=== PATIENT | male | born 1955 | race Caucasian/White ===

== ENCOUNTER 2019-08-09 10:22 | Emergency (ER) | payer MEDICARE, OTHER, SELFPAY ==
[2019-08-09 10:42] VITALS: BP 144/77; PULSE 101; RESP 18; TEMP 36.6; O2SAT 99
--- NOTE | 2019-08-09 11:04 | ED.URI ---
HPI - URI/Sore Throat General Chief Complaint: Upper Respiratory Infection Stated Complaint: cough and sore throat Time Seen by Provider: 08/09/19 11:04 Source: patient and family History of Present Illness HPI Narrative: Patient presents with dry hacking nonproductive cough for the past 2 weeks. Patient denies any shortness of breath no chest pain. Patient denies any asthma and is a non-smoker. Patient states his cough is worse when he gets up in the morning. Patient states he is tried Valerie-Sweet Briar plus DayQuil and NyQuil with minimal results in his cough. Patient denies any fever denies any nasal congestion and no ear pain. Patient denies any sore throat. MD elicited complaint: cough and nasal congestion Related Data Home Medications Medication Instructions Recorded Confirmed aspirin [Aspir-Low] 08/09/19 rosuvastatin [Crestor] 10 mg PO DAILY 08/09/19 08/09/19 tamsulosin [Flomax] 0.4 mg PO DAILY 08/09/19 08/09/19 Allergies Allergy/AdvReac Type Severity Reaction Status Date / Time No Known Allergies Allergy Unverified 06/17/16 18:22 Review of Systems Review of Systems: Narrative: CONSTITUTIONAL: Denies fever, chills, or sweats. EYES: Denies visual changes, redness, or discharge. ENT: Reports nasal congestion and drainage denies sore throat denies ear pain CARDIOVASCULAR: Denies chest pain, palpitations, or edema. RESPIRATORY: Denies dyspnea. Reports dry hacking nonproductive cough GASTROINTESTINAL: Denies abdominal pain, nausea, vomiting, or diarrhea. GENITOURINARY: Denies dysuria or hematuria. SKIN: Denies rash or itching. MUSCULOSKELETAL: Denies back pain, joint pain, or myalgia. NEUROLOGIC: Denies headache, numbness, or weakness. PSYCHIATRIC: Denies anxiety or depression. PMFSH Comments At time of signature, agree with nursing past medical, surgical, social and family history. There is no relevant family history pertinent to the presenting complaint Exam Narrative: Exam Narrative: GENERAL APPEARANCE: The patient is a well-developed, well-nourished in no acute distress. SKIN: Skin is warm and dry without erythema, swelling or exudate. There is good turgor. No tenting. HEAD: Atraumatic. Normocephalic. No temporal or scalp tenderness. EYES: Moist and bright. Sclera and conjunctivae normal. No discharge. PERRLA. Extraocular motions intact. Gross visual acuity intact. EARS: Pinna is normal shape and contour. Clear external auditory canals. TM pearly kaur with good cone of light, no erythema or suppuration. Bilateral cerumen noted no gross hearing deficit. NOSE: pink, moist mucosa with good air movement. Clear rhinorrhea without nasal flaring. Septum midline. Mouth: moist mucous membranes. THROAT; mild erythema noted to posterior oropharynx with moderate postnasal drainage. Without exudate or ulceration.. Uvula midline. Normal movement of soft palate. NECK: Supple and nontender with full range of motion without discomfort. No meningeal signs. LUNGS: Equal and bilateral breath sounds without wheezes, rales or rhonchi. CHEST: The chest wall is without retractions or use of accessory muscles. HEART: Has a regular rate and rhythm without murmur, gallops, click or rub. ABDOMEN: Soft, nontender with positive active bowel sounds. No rebound tenderness. EXTREMITIES: Without cyanosis, clubbing or edema. Equal 2+ distal pulses and 2 second capillary refill noted. NEUROLOGIC: alert, active, developmentally normal for age. The patient moves all extremities with normal muscle strength. Normal muscle tone is noted. Normal coordination is noted. NO focal neurological findings noted. Course Vital Signs Vital signs: Vital Signs Temperature 36.6 C 08/09/19 10:42 Pulse Rate 101 H 08/09/19 10:42 Respiratory Rate 18 08/09/19 10:42 Blood Pressure 144/77 H 08/09/19 10:42 Pulse Oximetry 99 08/09/19 10:42 Temperature 36.6 C 08/09/19 10:42 Pulse Rate 101 H 08/09/19 10:42 Respiratory Rate 18 08/09/19 10:42 Blood
== END 2019-08-09 11:15 | disposition home or self-care (01) ==
PROVIDERS: Emergency Provider Nurse Practitioner Family
DX: R09.82 Postnasal drip (principal); J06.9 Acute upper respiratory infection, unspecified; E78.00 Pure hypercholesterolemia, unspecified
CPT/HCPCS: 99203; G0463

== ENCOUNTER 2019-11-11 08:34 | Emergency (ER) | payer MEDICARE, OTHER, SELFPAY ==
[2019-11-11 08:44] VITALS: BP 134/72; PULSE 100; RESP 18; TEMP 37.7; O2SAT 98
--- NOTE | 2019-11-11 08:55 | ED.GENADULT ---
HPI - General Adult General Chief complaint: Extremity Injury, Upper Stated complaint: left elbow pain/swollen Time Seen by Provider: 11/11/19 08:55 Source: patient and RN notes reviewed Mode of arrival: ambulatory Limitations: no limitations History of Present Illness HPI narrative: 64-year-old male presents with complains of LT elbow tenderness and swelling for 1 day. Tylenol with little relief. Increase swelling today. Denies injuries or repetitive usage of LT arm. No radiation of pain. Exacerbation factor consist of movement and palpation. The relieving factor is immobility. Dominant hand is the RIGHT HAND. No suspected abuse. Denies fever or chills. Denies diarrhea, abdominal pain, nausea, and vomiting. Tolerating po intake well. Denies headaches, weakness, fatigue, myalgia. Denies chest pain or dyspnea. Denies cough, rhinorrhea, congestion, and sore throat. Denies recent traveling. Denies concern for COVID-19 or exposures been home since [id number] order except for essential household needs and return home. Some parts of this dictation were generated by voice recognition software and may contain typographical and/or grammatical inaccuracies. Related Data Home Medications Medication Instructions Recorded Confirmed aspirin [Aspir-Low] 81 mg PO DAILY 08/09/19 11/11/19 rosuvastatin [Crestor] 10 mg PO DAILY 08/09/19 11/11/19 tamsulosin [Flomax] 0.4 mg PO DAILY 08/09/19 11/11/19 Allergies Allergy/AdvReac Type Severity Reaction Status Date / Time No Known Allergies Allergy Verified 11/11/19 08:46 Review of Systems Review of Systems: Narrative: CONSTITUTIONAL: Denies fever, chills, sweats. EYES: Denies visual changes, redness, discharge. ENT: Denies rhinorrhea, congestion, sore throat, otalgia. CARDIOVASCULAR: Denies chest pain, palpitations, edema. RESPIRATORY: Denies dyspnea, wheezing, cough. GASTROINTESTINAL: Denies abdominal pain, nausea, vomiting, diarrhea. GENITOURINARY: Denies dysuria, hematuria, abnormal discharge. SKIN: Denies rash or itching. MUSCULOSKELETAL: Denies acute back pain or myalgia. Complains of LT elbow pain and swelling. NEUROLOGIC: Denies numbness or focal weakness. PSYCHIATRIC: Denies anxiety or depression. All other systems reviewed & are unremarkable except as noted in HPI and below. PMFSH Past Medical History Medical History (Updated 11/11/19 @ 10:38 by CHRISTIANO Ren) ACL (anterior cruciate ligament) tear Appendicitis Hernia History of BPH Hypercholesteremia Surgical History Surgical History (Updated 11/11/19 @ 10:38 by CHRISTIANO Ren) H/O arthroscopy of left knee History of hernia surgery Left Inguinal hernia History of repair of ACL Left knee Hx of appendectomy Hx of repair of right rotator cuff Family History Family History (Updated 11/11/19 @ 09:11 by CHRISTIANO Ren) Father No problems noted. Mother No problems noted. Social History Social History (Updated 11/11/19 @ 09:12 by CHRISTIANO Ren) Smoking status: Never smoker Second hand tobacco smoke exposure: No Alcohol intake: current Substance use: never Living arrangements: with family Occupation/Education: retired Gender identity (if verbalized by the patient): Male Exam Narrative: Exam Narrative: GENERAL APPEARANCE: The patient is a well-developed, well-nourished child who is awake, active. Interacts appropriately with surroundings and examiner, in no acute distress. HEAD: Atraumatic. Normocephalic. No temporal or scalp tenderness. EYES: Moist and bright. Sclera and conjunctivae normal. No discharge. PERRLA. Extraocular motions intact. Gross visual acuity intact. NECK: Supple and nontender with full range of motion without discomfort. No meningeal signs. LUNGS: Equal and bilateral breath sounds without wheezes, rales or rhonchi. CHEST: The chest wall is without retractions or use of accessory muscles.
== END 2019-11-11 09:20 | disposition home or self-care (01) ==
PROVIDERS: Emergency Provider Nurse Practitioner Family
DX: M70.32 Other bursitis of elbow, left elbow (principal); N40.0 Benign prostatic hyperplasia without lower urinary tract symptoms; E78.00 Pure hypercholesterolemia, unspecified; R03.0 Elevated blood-pressure reading, without diagnosis of hypertension
CPT/HCPCS: 99212; G0463

== ENCOUNTER 2024-02-14 15:35 | Emergency (ER) | payer MEDICARE, SELFPAY ==
[2024-02-14 15:42] VITALS: BP 126/74; PULSE 95; RESP 16; TEMP 36.6; O2SAT 98
--- NOTE | 2024-02-14 15:46 | ED.SKABFB ---
HPI - Skin/Abscess/Foreign Bdy General Chief complaint: Skin/Abscess/Foreign Body Stated complaint: Wasp stings on arms Source: patient, RN notes reviewed and old records reviewed Mode of arrival: ambulatory Limitations: no limitations History of Present Illness HPI narrative: 68 year old male accompanied by who presents to express care with complaints of being stung on his right arm lower inner arm and also to left lower leg ankle region yesterday by 5-6 wasps/bees. Patient has redness and swelling to areas with some discomfort with stated concern for infection to right inner arm due to swelling and warmth of area. Patient reports that he has taken Benadryl for the itching and swelling denies any difficulty with his breathing or with his swallowing. MD complaint: rash and insect bite/sting Onset (ago): day(s) (day 2) Location: RUE and LLE Severity: moderate Treatments prior to arrival: Benadryl Related Data Home Medications Medication Instructions Recorded Confirmed diclofenac sodium 75 mg 75 mg PO BID 02/14/24 02/14/24 tablet,delayed release diphenhydramine HCl 25 mg capsule 25 mg PO HS PRN Allergy Symptoms 02/14/24 02/14/24 dutasteride 0.5 mg capsule 0.5 mg PO DAILY 02/14/24 02/14/24 hydroxychloroquine 200 mg tablet 200 mg PO DAILY 02/14/24 02/14/24 leflunomide 20 mg tablet 20 mg PO DAILY 02/14/24 02/14/24 metoprolol succinate 50 mg 50 mg PO DAILY 02/14/24 02/14/24 tablet,extended release 24 hr rosuvastatin 10 mg tablet 10 mg PO DAILY 02/14/24 02/14/24 tamsulosin 0.4 mg capsule 0.4 mg PO DAILY 02/14/24 02/14/24 Allergies Allergy/AdvReac Type Severity Reaction Status Date / Time No Known Allergies Allergy Verified 02/14/24 15:44 Review of Systems Review of Systems: CONSTITUTIONAL: Denies malaise, chills, sweats, or fever. EYES: Denies visual changes, redness, or discharge. ENT: Reports no rhinorrhea, congestion, sinus pain, otalgia and or sore throat. CARDIOVASCULAR: Denies chest pain, palpitations, or edema. RESPIRATORY: Reports no cough.? Denies dyspnea. GASTROINTESTINAL: Denies abdominal pain, nausea, vomiting, diarrhea SKIN: Reports red raised swollen tissue to his right inner arm and to his left ankle area with itching. MUSCULOSKELETAL: Denies myalgia. NEUROLOGIC: Denies headache. All systems reviewed & are unremarkable except as noted in HPI and below PMFSH Past Medical History Medical History (Updated 02/16/24 @ 11:07 by Devi Holly NP) ACL (anterior cruciate ligament) tear Appendicitis Arthritis Hernia History of BPH Hypercholesteremia Hypertension Surgical History Surgical History H/O arthroscopy of left knee History of hernia surgery Left Inguinal hernia History of repair of ACL Left knee Hx of appendectomy Hx of repair of right rotator cuff Family History Family History Father No problems noted. Mother No problems noted. Social History Social History Smoking status: Never smoker Second hand tobacco smoke exposure: No Alcohol intake: current Substance use: never Living arrangements: with family Occupation/Education: retired Gender identity (if verbalized by the patient): Male Comments At time of signature, agree with nursing past medical, surgical, social and family history. There is no relevant family history pertinent to the presenting complaint Exam Narrative: GENERAL: Well-appearing, well-nourished, and in no acute distress. HEAD: Normocephalic EYES: PERRLA, conjunctivae clear ENT: Nares clear, turbinates edematous and erythematous, clear discharge. Mucous membranes moist. TM pearly silva with dull light reflex bilaterally; no tragal tenderness. Oropharynx erythematous without lesions. Tonsils not enlarged and without ex
[2024-02-14 15:57] VITALS: BP 126/74; PULSE 95; RESP 16; TEMP 36.6; O2SAT 98
== END 2024-02-14 16:15 | disposition home or self-care (01) ==
PROVIDERS: Emergency Provider Registered Nurse; PCP Internal Medicine
DX: T63.461A Toxic effect of venom of wasps, accidental (unintentional), initial encounter (principal); T63.441A Toxic effect of venom of bees, accidental (unintentional), initial encounter; E78.00 Pure hypercholesterolemia, unspecified; I10 Essential (primary) hypertension; N40.0 Benign prostatic hyperplasia without lower urinary tract symptoms; M19.90 Unspecified osteoarthritis, unspecified site
CPT/HCPCS: 99213; G0463